=== PATIENT | female | born 1995 | race Caucasian/White ===

== ENCOUNTER 2025-05-11 14:18 | Emergency (ER) | payer OTHER, SELFPAY ==
[2025-05-11 14:46] VITALS: BP 168/102; PULSE 85; RESP 20; TEMP 37; O2SAT 100; BMI 29.4
--- NOTE | 2025-05-11 16:40 | ED_ITS ---
HPI - Headache General Chief Complaint: Headache Stated Complaint: headache black spots in vision few weeks Time Seen by Provider: 05/11/25 16:30 Mode of arrival: Ambulatory History of Present Illness HPI Narrative: 30-year-old female presents with headache that has been ongoing for the last 5 days localized the bilateral temporal region with light sensitivity unrelieved with Tylenol. Patient was seen at urgent care yesterday was not given anything at discharged. Patient denies nausea vomiting blurred vision fever chills stiff neck cough runny nose sore throat or trauma to the area. Other than what is stated 14 point review of system is negative. Related Data Previous Rx's ?Medication ?Instructions ?Recorded lzpewsppwp-dnutpoelzmilf-fxuschqr 1 cap PO Q4-6H PRN p ain #30 caps 05/11/25 50 mg-300 mg-40 mg capsule (Fioricet) gmgwetjmeo-drliyjfpwhqwm-uroyvqcl 1 cap PO Q4-6H PRN p ain #30 caps 05/11/25 50 mg-300 mg-40 mg capsule (Fioricet) Allergies Allergy/AdvReac Type Severity Reaction Status Date / Time No Known Allergies Allergy Verified 05/11/25 14:47 Review of Systems Review of Systems ROS Unobtainable: All systems reviewed & are unremarkable except as noted in HPI and below Patient History Social History Smoking Status: Former smoker Smoking Status: Former smoker Exam Narrative Exam Narrative: GENERAL: [30] year old patient appears stated age. Well-developed patient, in mild distress. HEAD: Atraumatic. Normocephalic. EYES: Pupils equal round and reactive. Extraocular motions intact. No scleral icterus. No injection or drainage. ENT: Nose without bleeding, purulent drainage. Throat without erythema, tonsillar hypertrophy or exudate. Airway patent. NECK: Trachea midline. Non tender CARDIOVASCULAR: Regular rate and rhythm without murmurs, gallops, or rubs. RESPIRATORY: Clear to auscultation. Breath sounds equal bilaterally. No wheezes, rales, or rhonchi. GASTROINTESTINAL: Abdomen soft, non-tender, nondistended. EXTREMITIES: No edema or joint tenderness. BACK: Nontender without deformity or crepitance. No flank tenderness. NEURO: AOx3. GCS 15 nonfocal neuro exam alert and oriented x4 vbxjbf-pr-iqri opposite tlkj-mk-gxft test intact rapid alternating movement intact negative pronator drift SKIN: No rash or erythema of visible areas Initial Vital Signs Initial Vital Signs: Vital Signs Temperature 98.6 F 05/11/25 14:46 Pulse Rate 85 05/11/25 14:46 Respiratory Rate 20 05/11/25 14:46 Blood Pressure 168/102 H 05/11/25 14:46 Pulse Oximetry 100 05/11/25 14:46 Oxygen Delivery Method Room Air 05/11/25 14:46 Course Orders Ordered: Discontinued Medications Dexamethasone (Dexamethasone 10 Mg/Ml Vial) 6 mg IV NOW ONE Stop: 05/11/25 16:41 Last Admin: 05/11/25 17:41 Dose: 6 mg Documented By: CANDIDO Diphenhydramine HCl (Diphenhydramine 50 Mg/Ml Vial) 50 mg IV NOW ONE Stop: 05/11/25 16:41 Last Admin: 05/11/25 17:32 Dose: 50 mg Documented By: CANDIDO Droperidol (Droperidol 2.5 Mg/Ml Vial) 2.5 mg IV NOW ONE Stop: 05/11/25 16:41 Last Admin: 05/11/25 17:45 Dose: 2.5 mg Documented By: CANDIDO Lactated Ringer's (Lactated Ringers) 1,000 mls @ 1,000 mls/hr IV BOLUS ONE Stop: 05/11/25 17:39 Last Infusion: 05/11/25 18:42 Dose: Infused Documented By: Admin: 05/11/25 17:32 Dose: 1,000 mls/hr Documented By: CANDIDO Ketorolac Tromethamine (Ketorolac 30 Mg/Ml Vial) 30 mg IV NOW ONE Stop: 05/11/25 16:41 Last Admin: 05/11/25 17:32 Dose: 30 mg Documented By: CANDIDO Vital Signs Vital signs: Vital Signs - 8 hr 05/11/25 14:46 Temperature 98.6 F Pulse Rate 85 Respiratory Rate 20 Blood Pressure 168/102 H Pulse Oximetry 100 Oxygen Delivery Method Room Air MDM - Headache MDM Narrative Medical decision making narrative: Vital signs, nurse triage note, medication list, previous ER visits, and all imaging modalities reviewed. Patient given fluids, Toradol Benadryl droperidol and Decadron here will be discharged on Fioricet. Differential diagnosis includes dehydration, migraine, atypical headache. Discharge Plan Departure Patient Disposition: Home Clinical Impression: Migraine Instructions: DI for Migraine Activity Restrictions/Additional Instructions: Return with new or worsening symptoms. Keep hydrated. Follow up with PCP next week if no improvement in symptoms. Take medicines directed Prescriptions: New jxdmfzwhak-ofyaqfebzujbj-trwf [Fioricet] 50-300-40 mg capsule 1 cap PO Q4-6H PRN (Reason: pain) Qty: 30 0RF bfpwgqopjh-fenteaznnedzw-dijz [Fioricet] 50-300-40 mg capsule 1 cap PO Q4-6H PRN (Reason: pain) Qty: 30 0RF Stand Alone Forms: Patient Portal/API
[2025-05-11] MEDS: diphenhydrAMINE 50 MG/ML VIAL IV (17:32)
[2025-05-11] MEDS: KETOROLAC 30 MG/ML VIAL IV (17:32)
[2025-05-11] MEDS: LACTATED RINGERS 1,000 ML 1000 ML IV (17:32)
[2025-05-11] MEDS: DEXAMETHASONE 10 MG/ML VIAL 6 MG IV (17:41)
[2025-05-11] MEDS: droPERidol 2.5 MG/ML VIAL IV (17:45)
[2025-05-11 18:57] VITALS: BP 167/106; PULSE 92; RESP 17; O2SAT 97
== END 2025-05-11 18:57 | disposition home or self-care (01) ==
PROVIDERS: Emergency Provider Family Medicine
DX: G43.909 Migraine, unspecified, not intractable, without status migrainosus (principal)
CPT/HCPCS: 96361; 96374; 96375; 99283; 99284; J1100; J1200; J1790; J1885